=== PATIENT | female | born 1990 | race Caucasian/White ===

== ENCOUNTER 2025-04-17 08:55 | Day surgery (SDC) | payer BC ==
[~2025-04-17 08:55] MED LIST: Propofol 200 MG/20 ML SDV ONE; Sodium Chloride 0.9% 10 ML Syringe FLUSH PRN
[2025-04-17] MEDS: Lactated Ringers 1,000 ML IV SCH (09:36)
[2025-04-17] MEDS ORDERED: Propofol 200 MG/20 ML SDV ONE (11:29)
== END 2025-04-17 12:24 | disposition home or self-care (01) ==
LOC: LL.SDS 08:55
PROVIDERS: ATTEND Surgery
DX: D50.9 Iron deficiency anemia, unspecified (principal); F41.9 Anxiety disorder, unspecified; F32.A Depression, unspecified; Z79.899 Other long term (current) drug therapy; Z88.0 Allergy status to penicillin; Z91.018 Allergy to other foods
CPT/HCPCS: 00813; 43239; 45378; 81025; J2704; J7120